=== PATIENT | male | born 1990 | race Caucasian/White ===

== ENCOUNTER 2019-12-31 20:37 | Emergency (ER) | payer OTHER ==
[~2019-12-31] VITALS: Ht 182.9 cm; Wt 92.2 kg
[2019-12-31] MEDS ORDERED: OXYcodone/APAP 5/325MG TABLET PO ONE (21:00)
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
[2019-12-31] MEDS ORDERED: PROMETHAZINE 25 MG/ML, 1ML IM ONE (21:13)
[2019-12-31] MEDS ORDERED: PROMETHAZINE 25 MG/ML, 1ML ONE (21:14)
[2019-12-31] MEDS ORDERED: OXYcodone/APAP 5/325MG TABLET ONE (21:15)
--- NOTE | 2019-12-31 21:31 | NUR ---
PT MEDICATED PER MAR FOR PAIN AND NAUSEA, ADDITIONAL RADS TO BE COMPLETED IF PT ABLE TO TOLERATE ARM MOVEMENT, NAD, WCTM. FRIEND AT BS.
--- NOTE | 2019-12-31 22:08 | NUR ---
PT RESTING ON GURNEY, GIVEN WARM BLANKETS FOR COMFORT, NAD, DENIES ADDITIONAL NEEDS, STATES PAIN IS SIGNIFICANTLY DECREASED AND "NOW IM JUST SLEEPY", PT DENIES ANYMORE NAUSE. WCTM. WAITING FOR RAD RESULTS.
--- NOTE | 2019-12-31 22:44 | NUR ---
RN CALLED RADIOLOGY REGARDING READ, THEY ARE LOOKING INTO READ AT THIS TIME, PT RESTING ON ROMAN, NAD, NO CHANGE IN CONDITION, WCTM. EYES CLOSED APPEARS COMFORTABLE, EVEN AND UNLABORED RESPIRATIONS NOTED.
--- NOTE | 2019-12-31 23:40 | NUR ---
lae entry d/t pt care: pt nad, no change in condition, waiting for additional tests at this time. wctm.
--- NOTE | 2020-01-01 00:30 | NUR ---
pt resting on gurney, up for recheck, nad, gf at bs, eyes closed, even unlabored respirations. wctm.
[2020-01-01 01:23] VITALS: BP 113/63
--- NOTE | 2020-01-01 01:23 | NUR ---
Patient given discharge instructions and they have confirmed that they understand the instructions. Patient ambulatory with steady gait. DENIES ADDITIONAL QUESTIONS OR NEEDS AT THIS TIME. NAD, NO PT BELONGINGS LEFT IN ROOM AFTER DC.
[2020-01-01] MEDS ORDERED: ONDANSETRON ODT 4 MG ONE (01:29)
[2020-01-01] MEDS ORDERED: OXYcodone/APAP 5/325MG TABLET ONE (01:29)
[2020-01-01] MEDS ORDERED: OXYcodone/APAP 5/325MG TABLET PO ONE (01:30)
[2020-01-01] MEDS ORDERED: ONDANSETRON ODT 4 MG PO ONE (01:30)
== END 2020-01-01 01:25 ==
LOC: ED 21:32
DX: S52.125A Nondisplaced fracture of head of left radius, initial encounter for closed fracture (principal); F17.290 Nicotine dependence, other tobacco product, uncomplicated; W19.XXXA Unspecified fall, initial encounter; Y93.89 Activity, other specified; Y92.488 Other paved roadways as the place of occurrence of the external cause; Y99.8 Other external cause status
CPT/HCPCS: 29105; 73080; 73200; 96372; 99285; 99406; J2550; Q0162

== ENCOUNTER → 2020-01-15 | Outpatient (CLI) | payer OTHER | END | disposition home or self-care (01) | LOC: STAR 09:17 | PROVIDERS: ATTEND Anesthesiology | DX: Z01.812 Encounter for preprocedural laboratory examination (principal); Z20.828 Contact with and (suspected) exposure to other viral communicable diseases | CPT/HCPCS: 36415; 87635 ==

== ENCOUNTER 2020-01-19 08:32 | Day surgery (SDC) | payer OTHER ==
[~2020-01-19] VITALS: Ht 181.6 cm; Wt 90.6 kg
[2020-01-19] MEDS ORDERED: HYDR-3241 PO (09:23)
[2020-01-19] MEDS ORDERED: IBUP-647 PO (09:23)
[2020-01-19 09:25] VITALS: BP 133/82
[2020-01-19] MEDS ORDERED: CHLORHEXIDINE 15 ML UDC MM ONE (09:30)
[2020-01-19] MEDS ORDERED: LACTATED RINGERS 1,000 ML IV SCH (09:30)
[2020-01-19] MEDS ORDERED: BACITRACIN OINT 500U/GM, 15 GM ONE (09:58)
[2020-01-19] MEDS ORDERED: BUPIVACAINE/PF 0.5% ONE (09:58)
[2020-01-19] MEDS ORDERED: EPINEPHRINE 1 MG/ML, 1ML ONE (09:58)
[2020-01-19] MEDS ORDERED: FAMOTIDINE 20 MG TABLET ONE (10:03)
[2020-01-19] MEDS ORDERED: MIDAZOLAM 1 MG/ML, 2ML ONE (10:03)
[2020-01-19] MEDS ORDERED: OXYcodone IR 5MG TABLET ONE (10:04)
[2020-01-19] MEDS ORDERED: ACETAMINOPHEN 500 MG TABLET ONE (10:04)
[2020-01-19] MEDS ORDERED: FENTANYL PF 250 MCG/5ML ONE (10:13)
[2020-01-19] MEDS ORDERED: KETOROLAC 30 MG/1 ML ONE (10:27)
[2020-01-19] MEDS ORDERED: PROPOFOL 10 MG/ML, 20ML ONE ×2 (10:53)
[2020-01-19] MEDS ORDERED: SUCCINYLCHOLINE 20 MG/ML, 10ML ONE (10:53)
[2020-01-19] MEDS ORDERED: DEXAMETHASONE 4 MG/ML, 1ML ONE ×2 (10:53→10:54)
[2020-01-19] MEDS ORDERED: CEFAZOLIN 1,000 MG ONE ×2 (10:53)
[2020-01-19] MEDS ORDERED: GLYCOPYRROLATE 0.2MG/1ML, 5ML ONE (10:53)
[2020-01-19] MEDS ORDERED: ONDANSETRON 2MG/ML, 2ML ONE (10:54)
[2020-01-19] MEDS ORDERED: BUPIVACAINE/PF-EPI 0.5% 1:200K INFIL ONE (10:54)
[2020-01-19] MEDS ORDERED: LABETALOL 5MG/ML, 20ML ONE (11:14)
[2020-01-19] MEDS ORDERED: PROMETHAZINE 25 MG/ML, 1ML IVPush PRN (11:30)
[2020-01-19] MEDS ORDERED: MEPERIDINE/PF 25MG/0.5ML IVPush PRN (11:30)
[2020-01-19] MEDS ORDERED: BACITRACIN OINT 500U/GM, 15 GM TP ONE (12:18)
[2020-01-19] MEDS ORDERED: ROPIvacaine/PF 0.5%, 30 ML ONE (12:46)
[2020-01-19] MEDS ORDERED: MEPERIDINE/PF 25MG/ML,1ML ONE (13:03)
[2020-01-19] MEDS ORDERED: FENTANYL PF 100 MCG/2ML ONE (13:16)
[2020-01-19] MEDS: FENTANYL PF 100 MCG/2ML IV PRN ×3 (13:17→13:47)
[2020-01-19] MEDS ORDERED: OXYcodone 5 MG/5 ML ORAL.SOL UDC ONE (13:30)
[2020-01-19] MEDS: OXYcodone 5 MG/5 ML ORAL.SOL UDC PO PRN ×2 (13:31→14:21)
[2020-01-19] MEDS ORDERED: ACETAMINOPHEN 325 MG TABLET ONE (15:06)
[2020-01-19] MEDS ORDERED: ACETAMINOPHEN 325 MG TABLET PO PRN (15:30)
== END 2020-01-19 16:35 | disposition home or self-care (01) ==
LOC: OUT 08:32
PROVIDERS: ATTEND Orthopaedic Surgery
DX: S52.121A Displaced fracture of head of right radius, initial encounter for closed fracture (principal); S42.431A Displaced fracture (avulsion) of lateral epicondyle of right humerus, initial encounter for closed fracture; S52.041A Displaced fracture of coronoid process of right ulna, initial encounter for closed fracture; M24.221 Disorder of ligament, right elbow; G89.18 Other acute postprocedural pain; F17.200 Nicotine dependence, unspecified, uncomplicated; Z79.1 Long term (current) use of non-steroidal anti-inflammatories (NSAID); W18.39XA Other fall on same level, initial encounter; Y93.02 Activity, running; Y92.89 Other specified places as the place of occurrence of the external cause; Y99.8 Other external cause status
CPT/HCPCS: 24579; 24665; 64415; 73070; C1713; J0171; J0330; J0690; J1100; J1885; J2175; J2405; J2704; J2795; J3010; J7120; 76000